=== PATIENT | female | born 1930 | race Native Hawaiian/Other Pacific Islander ===

== ENCOUNTER 2017-02-03 17:40 | Inpatient (IN) | payer OTHER ==
[~2017-02-03] VITALS: Ht 167.6 cm; Wt 52.2 kg
[2017-02-03] VITALS (17 sets, daily range): BP systolic 54–85; BP diastolic 33–63; TEMP 87.5–92.4; Ht 167.6 cm; Wt 52.2 kg
[~2017-02-03 17:40] MED LIST: DIPH50CA30 PO; ESTR0.6211 PO; HYDR50CA21 PO; LISI10TA11 PO; MOTRIN PO
--- NOTE | 2017-02-03 18:00 | NUR ---
RECIEVED REPORT FROM EDE NURSE FROM [facility], ADMITTED 86 YEAR OLD FEMALE TO ICU 131 BED 3 VIA CHAIR. ADMITTED TO DR WINN SERVICES DX.HYPOTENSION, BRADYCARDIA. MOVED PT TO BED PT VERY DROWSY. PLACED ON MONITOR HR 56, B/P 69/36. PT FELT COLD UNABLE TO GET ORAL OR AX TEMP. VINCENT FARLEY HERE GAVE REPORT AND WHAT HAD BEEN DONE AT [facility]. APPLIED BLANKET.
--- NOTE | 2017-02-03 18:15 | NUR ---
RECIEVED HELP FROM KIMBERLY NOLAN TO TURN PT. OBTAINED RECTAL TEMP 87.5, REPORT TO VINCENT BOWSER OUTSIDE SALES EXECUTIVE. SET UP WARMER, WARMING BLANKET APPLED RECTAL PROBE INSERTED AND TAPED. TO MONITOR CONTINOUS TEMP 87.4 RECTAL. LABS DRAWN FROM LEFT ARM B/P RECIEVED ORDERS FOR 2L BOLUS IV FLUIDS STARTED AT 999.
[2017-02-03 18:24] LABS: PLATELET COUNT 91 K/uL (152-353)
[2017-02-03 18:27] LABS: SODIUM 139 mmol/L (136-145)
--- NOTE | 2017-02-03 18:30 | NUR ---
VINCENT BOWSER INLETTER ON PHONE WITH DR WINN. GETTING ORDERS. HUSSEIN CLAMPED ATTEMPT TO OBTAIN URINE SPEC. NOTED URINE IN BAG DARK CLOUDY. WILL DRAW URINE UP BY INSERTION SITE, OBTAINED TWO SET BLOOD CULTURES. MANUAL B/P TAKEN VERY FAINT.
--- NOTE | 2017-02-03 18:55 | NUR ---
OBTAINED 3 ML YELLOW URINE SPEC SENT TO LAB. CONTINUES UNDER WARMING BLANKET TEMP 86.5 RECTAL. PT ATTEMPT TO WAKE WHEN YOU CALL HER NAME. TRIES TO OPEN EYES FOLLOWS COMMANDS AT ON TIME PT SPOKE A LITTLE SPEECH A LITTLE SLOW, CLEAR. DR WINN BACK ON PHONE WITH VINCENT PT UPDATE. REPORT TO ONCOMING SHIFT.
--- NOTE | 2017-02-03 20:50 | NUR ---
PT'S ADMISSION ASSESSMENT COMPLETED. PT DOES OPEN EYES WWITH STIMULATION. PT'S IVF'S WERE INCREASED TO 200 ML/HR. PT BP IS IMPROVING. BP 85/55. PT WEARING BIPAP AND 02 SAT IS 100 PERCENT. PT WITH DATA ADMINISTRATOR. SR AT 80 BPM. PT WITH WARMING BLANKET. TEMP IS RECTAL 88.4 AT PRESENT. HUSSEIN CATHETAR INTACT WITH YELLOW CONCENTRATED URINE COLLECTING.
--- NOTE | 2017-02-03 22:16 | NUR ---
RESP HERE AND ABG WAS DRAWN FROM PT'S RIGHT RADIAL ARTERY. PRESSURE APPLIED TO SITE TO CONTROL BLEEDING.
--- NOTE | 2017-02-03 23:23 | NUR ---
22:12PM. RESP SENT RESULTS TO DR. WINN AND CHANGED OXYGEN TO 25 PERCENT. NO NEW ORDERS RECEIVED.
[2017-02-04] VITALS (29 sets, daily range): BP systolic 78–152; BP diastolic 42–62; TEMP 93–98.3
--- NOTE | 2017-02-04 04:32 | NUR ---
PT'S TEMPERATURE IS 97.4. WARMING BLANKET REMOVE. CONTINUING TO MONITOR RECTAL TEMP. PT WAS REPOSTIONED. LOWER EXT ELEVATED ON PILLOW WITH HEELS FLOATING. NOTED PT WITH LONG TOE NAILS AND PT HAS MULTIPLE OLD BRUISES TO LOWER EXT. PT HAS MUTIPLE BRUSIES TO UPPER EXTREMITIES. ALL SKNI INTACT. R KNEE DRESSED WITH WITH TEGADERM DRESSING. L KNEE DRESSED WITH TEGADERM ACTUARIAL ASSOCIATE . REPORTED FROM [facility] THESE PLACES ARE SKIN TEARS. PT WEARING BIPAP. VITAL SIGNS IMPROVED. BP93/445. HR 101. O2 SAT IS 97 PERCENT. SINUS TACH AT 110. PT DOES RESPOND TO TACTILE AND VERBAL STIMULATION.
[2017-02-04 07:16] LABS: POTASSIUM 4.3 mmol/L (3.6-5.2); SODIUM 140 mmol/L (136-145)
[2017-02-04 07:17] LABS: PLATELET COUNT 152 K/uL (152-353)
--- NOTE | 2017-02-04 07:41 | NUR ---
RESP HERE AT BEDSIDE. DR. WINN VISITED. BLOOD WAS DRAWN AND SENT TO LAB. REPORT TO RANJEET SOLIS.
--- NOTE | 2017-02-04 08:15 | NUR ---
AM ASSESSMENT COMPLETE
--- NOTE | 2017-02-04 11:10 | NUR ---
BIPAP REMOVED AT THIS TIME. RECTAL TEMP 96.8. WARMING BLANKET APPLIED
--- NOTE | 2017-02-04 11:18 | NUR ---
PREETI/LHAND RING FINGER-3 RINGS, RHAND-RING FINGER 1 RING AND 1 RING ON SMALL FINGER
--- NOTE | 2017-02-04 13:40 | NUR ---
WARMING BLANKET REMOVED. TEMP 98. RECTAL PROBE INTACT FOR MONITORING. HR 118. BREATHING TX GIVEN AROUND 1400
--- NOTE | 2017-02-04 15:00 | NUR ---
PTS FRIENDS AT BS, PT AROUSES TO VERBAL, PT DOES NOT OPEN EYES. PT ANSWERS QUESTIONS WITH YES OR NO ONLY
--- NOTE | 2017-02-04 16:00 | NUR ---
RINGS REMOVED PER MAXIMO MAZARIEGOS RN. PLACED IN A DENTURE CUP W/PTS NAME ON IT, PAPER PLACED IN CUP ALSO WITTENESSED BY 2 NURSES STATING WHAT WAS IN CUP, PAPER ALSO PLACED ON CHART.
--- NOTE | 2017-02-04 17:30 | NUR ---
DYLLAN HAND HAND II THERMAL CUTTER EQUAL/WEAK
--- NOTE | 2017-02-04 19:20 | NUR ---
Received pt resting in bed with eyes closed. Assessment completed. HOB elevated. Resp even and non labored. No distress noted at this time. VSS per monitor. HR in the 110-[address] Hills notified of this. Leona to BSD. Bed in lowest position. Will continue to monitor.
[2017-02-04 20:13] LABS: POTASSIUM 3.5 mmol/L (3.6-5.2)
--- NOTE | 2017-02-04 20:40 | NUR ---
Dr. Hills notified of lab results and HR of 122. Orders to change fluid rate from 200cc/hr to 100cc/hr given at this time. Will continue to monitor.
--- NOTE | 2017-02-04 23:21 | NUR ---
VSS per monitor. No change in assessment. No distress noted. Will continue to monitor.
[2017-02-05] VITALS (23 sets, daily range): BP systolic 99–167; BP diastolic 50–77; TEMP 97.7–99.1
--- NOTE | 2017-02-05 02:07 | NUR ---
Mouth care performed on pt. Repositioned in bed. Will continue to monitor.
--- NOTE | 2017-02-05 03:40 | NUR ---
Dr. Cr notified of pt's vitals and HR of 135. Orders given for Labatelol 10mg IV to be given and may repeat in 30 minutes if HR above 115. Will continue to monitor.
--- NOTE | 2017-02-05 04:15 | NUR ---
Pt HR of 110 at this time. Will continue to monitor.
--- NOTE | 2017-02-05 05:50 | NUR ---
Morning labs drawn. Mouth care performed and pt repositioned in bed. No change in assessment at this time.
[2017-02-05 06:33] LABS: PLATELET COUNT 166 K/uL (152-353)
[2017-02-05 06:37] LABS: POTASSIUM 3.9 mmol/L (3.6-5.2); SODIUM 141 mmol/L (136-145)
--- NOTE | 2017-02-05 08:20 | NUR ---
AM ASSESSMENT COMPLETE
--- NOTE | 2017-02-05 10:00 | NUR ---
POSITIVE BLOOD RETURN TO IV SITE
--- NOTE | 2017-02-05 11:09 | NUR ---
INFORMED PT THAT SHE HAD A SKINTEAR TO HER ARM AND THAT IT NEEDED TO BE DRESSED, ASKED PT TO LIFT HER ARM, PT ATTEMPTED TO BITE MY HAND. I INFORMED PT THAT I WAS ONLY TRYING TO HELP HER, PT STARTING REPEATING THE WORDS "I KNOW I KNOW I KNOW". MOUTHCARE HAS BEEN ATTEMPTED MORE THAN ONCE, PT GROWLS AND CLAMPS DOWN ON CLEANING SUPPLIES. PT DID ACCEPT SIPS OF WATER, TOLERATED WELL.
--- NOTE | 2017-02-05 11:20 | NUR ---
DR WINN AT BS
--- NOTE | 2017-02-05 12:38 | NUR ---
PT SIPS OF SPRIT, PT DID NOT LIKE BROTH
--- NOTE | 2017-02-05 13:05 | NUR ---
PT WAS ASKED IF SHE PREFERRED GABRIEL OR VANILLA, PT INDICATED VANILLA. PT GIVEN SIPS OF ENSURE.
--- NOTE | 2017-02-05 17:00 | NUR ---
PT GIVEN BATH BY PCT. PT ATTEMPTING TO BITE. SCREAMING, GROWLING, CLAWING. PT IS COMBATIVE. PT CURSES, THEN WILL SAY "YOU ARE SO NICE" WHILE SCREAMING. PROCEDURES WERE EXPLAINED TO PT PRIOR TO, PT BECOMES AGITATED MOST OFTEN WHEN TOUCHED. PT BELIEVES THAT SHE IS BEING LIED TO, PT USES FOUL LANGUAGE.
--- NOTE | 2017-02-05 18:00 | NUR ---
SKINTEARS CLEANED AND TREATED WITH NEOSPORIN.
--- NOTE | 2017-02-05 19:30 | NUR ---
Received pt resting in bed quietly. No distress noted at this time. VSS per monitor. Resp even and non labored. Lungs clear to auscultation. Assessment completed. NS infusing to RFA via 22g at 100cc/hr. No s/s of infiltration noted. Bed in lowest position. Call light within reach. Will continue to monitor.
--- NOTE | 2017-02-05 22:31 | NUR ---
Pt stated that she wanted to be turned in bed. Repositioned pt at this time.
--- NOTE | 2017-02-05 23:20 | NUR ---
Pt became agitated. Yelling and hitting herself. Dr. Benitez notified of pt activity. Orders for Geodon 10mg IM given at this time.
--- NOTE | 2017-02-05 23:35 | NUR ---
Geodon 10mg IM given at this time. Will continue to monitor.
[2017-02-06] VITALS (16 sets, daily range): BP systolic 131–175; BP diastolic 58–88; TEMP 97–98
--- NOTE | 2017-02-06 00:12 | NUR ---
Pt resting in bed quietly at this time. Will continue to monitor.
--- NOTE | 2017-02-06 05:18 | NUR ---
No distress noted at this time. Pt resting with eyes closed. Will continue to monitor.
--- NOTE | 2017-02-06 06:21 | NUR ---
Attempted to draw morning labs. Pt screaming and hitting at me. Unsuccessful at this time.
--- NOTE | 2017-02-06 07:00 | NUR ---
REPORT FROM PM STAFF. PT RESTING WITH EYES CLOSED. NO C/O PAIN. NO AGGITATION AT THIS TIME.
--- NOTE | 2017-02-06 07:18 | NUR ---
LAB IN FOR BLOOD DRAW,PT CRYING OUT LOUDLY WITH NEEDLE STICK THEN CALM & QUIET AFTER.
[2017-02-06 07:31] LABS: PLATELET COUNT 138 K/uL (152-353)
[2017-02-06 07:40] LABS: POTASSIUM 3.9 mmol/L (3.6-5.2); SODIUM 142 mmol/L (136-145)
--- NOTE | 2017-02-06 08:30 | NUR ---
PT FED BREAKFAST,SM AMT CL LIQUIDS.
--- NOTE | 2017-02-06 10:15 | NUR ---
FAMILYIN TO VISIT. PT CAN'T RECALL THEIR NAMES BUT IT APPEARS THAT SHE KNOWS WHO THEY ARE.
--- NOTE | 2017-02-06 11:15 | NUR ---
DR WINN IN TO SEE PT,PT ASSESSMENT. NEW ORDERS. PT TO BE TRANSFERRED BACK TO [facility].
--- NOTE | 2017-02-06 12:00 | NUR ---
HUSSEIN CATH CLAMPED PER ORDER. PT DROWSY,ONLY DRANK A FEW SIPS OF ENSURE.
--- NOTE | 2017-02-06 13:44 | NUR ---
REPORT CALLED TO DAMION VILLAFUERTE RN AT [facility], [place].
--- NOTE | 2017-02-06 13:45 | NUR ---
HUSSEIN UNCLAMPED. IV D/C'D CANNULA INTACT. PT COOPERATIVE & HELPED TURN SELF. HAIR BRUSHED. PT WITH O2 SAT 94% ON RM AIR.NEOSPORIN REAPPLIED TO MULTIPLE SKIN TEARS ON ARMS, LEGS, BUTTOCKS. NO DRAINAGE AT SITES.
--- NOTE | 2017-02-06 14:00 | NUR ---
HUSSEIN RECLAMPED PER DR HAMPTON. PT RESTING ON R SIDE,HOB UP.
--- NOTE | 2017-02-06 14:14 | NUR ---
U STAFF HERE FOR PT.PT D/C'D FROM MONITOR,HR 71,SR,O2 SAT 94% ON RM AIR. PT ASSISTED TO TRANSFER TO [facility], PT WEAK & APPEARS TO HAVE DIFFICULTY UNDERSTANDING REQUESTS. PT HOLLERED AT STAFF 'I'M TRYING' WHEN ASKED TO TRY TO STAND. PT'S GLASSES,& 1 PAIR OF EARRINGS ON PT,5 GOLDTONE RINGS & 1 GOLD TONE WATCH RETURNED TO [facility] STAFF DAMION VILLAFUERTE RN. TRANSFERRED STABLE TO [facility] VIA [facility] PER [facility] STAFF.
== END 2017-02-06 14:20 | disposition other institution (70) | DRG 189 ==
LOC: ICU 17:40
PROVIDERS: ADMIT Internal Medicine
DX: J96.02 Acute respiratory failure with hypercapnia (principal); I95.89 Other hypotension; T68.XXXA Hypothermia, initial encounter; I10 Essential (primary) hypertension
CPT/HCPCS: 36415; 36600; 80048; 80053; 81000; 82550; 82805; 83605; 83735; 83880; 84443; 84484; 85027; 85651; 87040; 93005; 94640; 94664; 94760; 96372; J1644; J1956; J2930; J3486; J3490